=== PATIENT | male | born 1940 | race Caucasian/White ===

== ENCOUNTER 2017-12-11 14:23 | Emergency (ER) | payer OTHER ==
[~2017-12-11] VITALS: Ht 177.8 cm; Wt 98.9 kg
[~2017-12-11 14:23] MED LIST: CENTRUM SILVER1 EAC3 PO; SYNTHROID150 MCG PO; VITAMIN D2000 UNIT PO
[2017-12-11 15:07] LABS: HEMATOCRIT 44.6 % (38.0-50.0); HEMOGLOBIN 15.6 G/DL (12.5-16.6); MCH 32.6 PG (29.0-34.0); MCV 93.3 FL (86-99); PLATELET COUNT 233 K/uL (156-360); RBC DIS.WIDTH-CV 13.2 % (11.8-14.6); RBC DIS.WIDTH-SD 45.2 % (39-53); RED BLOOD COUNT 4.78 M/uL (4.00-5.50); WHITE BLOOD COUNT 9.7 K/uL (4.1-10.2)
[2017-12-11 15:17] LABS: CHLORIDE 105 mEq/L (99-109); POTASSIUM 4.9 mEq/L (3.7-5.4); SODIUM 141 mEq/L (136-147)
[2017-12-11 15:18] LABS: GLUCOSE 186 mg/dL (70-99)
[2017-12-11 15:22] LABS: GFR ESTIMATE (CALCULATED) > 59 mL/min/ (58.99-99999)
[2017-12-11 15:23] LABS: UREA NITROGEN (BUN) 14 mg/dL (9-23)
[2017-12-11 15:51] LABS: APPEARANCE CLEAR ((CLEAR)); BILIRUBIN NEGATIVE; BLOOD LARGE; COLOR YELLOW ((YELLOW)); GLUCOSE (STRIP) 50; KETONES NEGATIVE; LEUKOCYTES NEGATIVE; NITRITE NEGATIVE; PROTEIN (STRIP) 30; SPECIFIC GRAVITY 1.013 (1.000-1.030); UROBILINOGEN 0.2 MG/DL (0.2-1.0)
[2017-12-11 15:57] LABS: BACTERIA RARE /HPF; EPITHELIAL CELLS RARE /HPF; MUCUS TRACE /LPF; RED BLOOD CELLS TNTC /HPF (0-5); UCUL ADDED? YES; WHITE BLOOD CELLS 0-5 /HPF (0-5)
[2017-12-11 16:37] LABS: ALBUMIN 4.5 g/dL (3.2-4.8)
[2017-12-11 16:40] LABS: TOTAL PROTEIN 7.6 g/dL (6.4-8.3)
[2017-12-11 16:41] LABS: TOTAL BILIRUBIN 0.7 mg/dL (0.0-1.0)
[2017-12-11 16:43] LABS: ALKALINE PHOSPHATASE 77 IU/L (3-129)
[2017-12-11 16:45] LABS: AST (GOT) 24 IU/L (2-34); DIRECT BILIRUBIN 0.2 mg/dL (0.0-0.3)
[2017-12-11 16:46] LABS: ALT (GPT) 22 IU/L (3-49); LIPASE 17 U/L (1.0-51.0)
[2017-12-11 17:41] VITALS: BP 178/87
== END 2017-12-11 17:42 | disposition home or self-care (01) ==
LOC: EME 14:23
DX: N20.0 Calculus of kidney (principal); R31.9 Hematuria, unspecified; E78.5 Hyperlipidemia, unspecified; I10 Essential (primary) hypertension; Z87.442 Personal history of urinary calculi
CPT/HCPCS: 74176; 80048; 80076; 81003; 83690; 85027; 87086; 99281; 99284